=== PATIENT | female | born 1975 | race Caucasian/White ===

== ENCOUNTER 2022-06-19 18:03 | Emergency (ER) | payer OTHER, SELFPAY ==
[2022-06-19 18:04] VITALS: BP 155/76; PULSE 93; RESP 15; TEMP 36.1; O2SAT 99; BMI 23.5
--- NOTE | 2022-06-19 18:27 | EDS_ITS ---
HPI History of Present Illness Chief Complaint: Eye Problem Informant: patient Onset/Context/Timing Location: Bilateral Eyes Onset: Today Context: Sudden Onset Timing: Continuous Worsened by: Nothing Relieved by: Nothing Associated Symptoms Associated Symptoms - Eyes: Burning and - (Irritated) History of injury: Yes and - ([place] pain in both eyes) Narrative Narrative: Patient presents with bilateral eye pain that began today. Patient states he accidentally sprayed a can of spray pain into her eyes. Patient states it was heat resistant oil-based spray paint that she was using on a radiator. Patient states she washed her eyes thoroughly. Patient removed her contacts. Patient admits to some burning sensation in both eyes. Patient states they feel irritated. Patient states she normally wears contacts. Patient denies any visual changes. Patient denies any matting or crusting. [facility] Medical History (Updated 06/19/22 @ 19:[address] Arben Lin DO) Lupus Home Medications hydroxychloroquine 200 mg tablet 400 mg PO DAILY 08/26/15 [History Last Taken Unknown] desogestrel-e.estradiol 0.15 mg-0.02 mg(21)/e.estrad 0.01 mg(5) tablet (Volnea (28)) 1 tab PO DAILY 06/19/22 [History Last Taken Unknown] Allergy/AdvReac Type Severity Reaction Status Date / Time shellfish derived Allergy Shortness Verified 06/19/22 18:04 of breath erythromycin base AdvReac Upset Verified 06/19/22 18:04 Stomach Sulfa (Sulfonamide AdvReac Rash Verified 06/19/22 18:04 Antibiotics) tetracycline AdvReac Upset Verified 06/19/22 18:04 Stomach Social History Smoking Status: Never smoker ROS ROS ED Constitutional Constitutional ED: Denies chills or fever(s) Eyes Eyes: Denies blurry vision or change in vision ENT ENT ED: Denies rhinorrhea or sore throat Cardiovascular Cardiovascular: Denies chest pain or palpitations Respiratory/Chest Respiratory/Chest: Denies cough or dyspnea Gastrointestinal Gastrointestinal: Denies nausea or vomiting Genitourinary Genitourinary ED: Denies dysuria or hematuria Musculoskeletal Musculoskeletal: Denies back pain or neck pain Integumentary Denies abscess or rash Neurologic Neurologic: Denies headache(s) or weakness Allergic/Immunologic Allergic/Immunologic ED: Denies mouth swelling or urticaria EXAM Physical Exam Const Vital Signs: 06/19/22 18:04 Temperature 96.9 F L Temperature Source Temporal Pulse Rate 93 Respiratory Rate 15 Blood Pressure 155/76 H Blood Pressure Mean 102 Pulse Ox 99 Oxygen Delivery Method Room Air Positive well nourished and well developed General Appearance ED: well developed and NAD HEENT atraumatic Nose: external nose normal Eyes Eyes Narrative: Pupils are equal, round, and reactive to light bilaterally. Extraocular muscles are intact. Conjunctiva is clear. There are no foreign bodies visualized. There is no discharge or drainage noted. There is no edema of the upper or lower eyelids. Anterior chamber is clear. There is an equal red reflex bilaterally. Neck supple and no JVD Neuro oriented x3, CN's II-XII intact bilaterally, moves all extremities and no sensory deficits noted Sensorium / Orientation: alert Motor Exam: strength 5/5 throughout Skin no wounds MDM MDM MDM Narrative Medical decision making narrative: Tetracaine and fluorescein dye was applied. Patient was examined under slit- lamp. There are no corneal abrasions or corneal ulcers. Anterior chamber is clear. There is no hyphema. There is no cell or flare. There are no foreign bodies noted. Patient was given a prescription for ophthalmic drops. Patient was given referral for ophthalmology. Patient was instructed to follow-up in 2 to 3 days. Patient understood and was agreeable with the plan. All questions were answered. Discharge Plan Triage Chief Complaint: Eye Problem ED Provider: Arben Lin Dx/Rx/DC Orders Clinical Impression: Chemical conjunctivitis of both eyes Instructions: ED Eye Exposure, Chemical Prescriptions: No Action hydroxychloroquine 200 MG tablet 400 mg PO DAILY desog-e.estradiol/e.estradiol [Volnea (28)] 0.15-0.02 mgx21 /0.01 mg x 5 tablet 1 tab PO DAILY Primary Care Provider: Mp Sewell Referrals: Abner Polanco MD [Med Staff - Active Staff] - 2 Days Mp Sewell MD [Primary Care Provider] - Disposition Disposition: Home, Self Care
[2022-06-19] MEDS: Tetracaine 0.5% Ophthalmic Bottle OPHTHALMIC (19:26)
[2022-06-19] MEDS: Fluorescein 1 MG STRIP 1 STRIP OPHTHALMIC (19:26)
[2022-06-19] MEDS: Ciprofloxacin 0.3% 2.5ml Bottle EACH EYE (19:52)
== END 2022-06-19 19:55 | disposition home or self-care (01) ==
PROVIDERS: Emergency Provider Emergency Medicine; PCP Internal Medicine; Visit Provider Emergency Medicine
DX: H10.213 Acute toxic conjunctivitis, bilateral (principal)
CPT/HCPCS: 99283